=== PATIENT | female | born 1990 | race Two or more races ===

== ENCOUNTER 2023-01-01 23:37 | Inpatient (IN) ==
[2023-01-02] MEDS ORDERED: LIDOCAINE 1% LOCAL 20 ML VIAL INFIL PRN (01:19)
[2023-01-02] MEDS ORDERED: OXYTOCIN 30 UNITS/500 ML BAG IV PRN ×2 (01:19→07:41)
[2023-01-02] MEDS ORDERED: LACTATED RINGER'S 1,000 ML IV PRN (01:19)
[2023-01-02] MEDS ORDERED: VANCOMYCIN HCL 1,000 MG in SODIUM CHLORIDE 0.9% 250 ML IV STA (01:19)
[2023-01-02] MEDS ORDERED: GENTAMICIN SULFATE STA (01:24)
[2023-01-02] MEDS ORDERED: AZITHROMYCIN 250 MG TAB PO ONE (01:24)
[2023-01-02] MEDS ORDERED: SODIUM CHLORIDE 0.9% 250 ML IV PRN (01:27)
[2023-01-02] MEDS ORDERED: GENTAMICIN SULFATE 40 MG/ML 2 ML VIAL IM ONE (01:45)
--- NOTE | 2023-01-02 02:05 | History & Physical Report ---
Date of Service January 02, 2023 Assessment & Plan (1) Late care affecting : (2) History of von Willebrand's disease: (3) History of drug abuse: (4) and not yet delivered: Plan Labor - Admit to L&D. EFM/toco. Labs. Not eligible for spinal anesthesia d/t VonWillebrands. Given patient's active labor, patient is not eligible for consideration of transfer. VonWillebrands disease - Will plan for DDAVP prior to delivery, 0.3mcg/kg (max 20mcg) in 50mL NS over 20-30 min. Can repeat at 12 and 24h. I have discussed the case with on-call anesthesiologist and on-call ICU provider. I called blood bank to verify adequate blood supplies - there is frozen FFP and cryo available, as well as 2u platelets, and adequate O+ PRBC supplies. Coagulation labs ordered. VonWillebrand activity labs ordered, however cannot be done overnight because this is a send-out lab. I called and discussed case with on-call social worker assistant Dr Seaman. Her recommendations are to give DDAVP prior to delivery, ok to repeat. OK for TXA at time of delivery. If is necessary, have platelets available. Hepatitis C - will plan to avoid internal monitoring if possible, membranes already ruptured. Late care - health social work professor consult Hx Substance use - Patient's self-report is 1/8 to 1/4 tablet daily during the . Will plan to medicate with her current regimen during hospitalization to avoid withdrawal symptoms. She is aware of urine drug screen orders. Social work consultation for post-delivery evaluation. Gonorrhea positive - Ordered 2g azithromycin PO, 240mg IM gentamicin d/t PCN anaphylaxis allergy. GBS Unknown, PCN anaphylaxis allergy - Vancomycin for prophylaxis Admission and Anticipated Discharge Date Admission Date: January 02, 2023 History of Present Illness Chief Complaint: contractions, leaking fluid Primary Care Provider: WILLIAM Lugo 32yo @ 37 12/12 (based on 3rd tri dating [place]) presented to L&D with complaint of leaking clear fluid since 3am 01/01, contractions every 5 minutes. + movement, no vaginal bleeding. She did not come to hospital or call after rupture of membranes, arrived to hospital at approx 23:45 01/01. complicated by: VonWillebrands disease - she was diagnosed after delivery of her first child 13 years ago. Rec'd blood transfusion with that delivery, which prompted coagulopathy workup. Has rec'd DDAVP in the past for procedures (D&C). She was referred to hematology for consultation during this , did not go to this appointment. Hepatitis C - recommendation to avoid internal monitoring if possible, delay rupture of membranes. Patient arrived with rupture of membranes. Will recommend referral to hepatology for management after delivery. Late care - established care at 33w gestation. Hx Substance use - At New OB visit, UDS positive for methamphetamine and marijuana. She reports having a medical marijuana card. States she has been on Subutex prior to and during . She is using 1/8 to 1/4 tablet daily during the . She states she does not have a prescription for this yet because she is switching doctors, but says that the prescription will be available through [facility] program on January 11. Urine drug screen ordered on this admission - patient is aware and agreeable to this. Social work consultation for post-delivery evaluation. Gonorrhea positive - Patient was ordered treatment for this - azithromycin, gentamicin d/t PCN anaphylaxis allergy, was to have this completed at [facility] - patient did not attend this appointment and never received treatment. Allergies Allergy/AdvReac Type Severity Reaction Status Date / Time Penicillins Allergy Anaphylaxis Verified 12/16/22 14:03 Sulfa (Sulfonamide Allergy Anaphylaxis Verified 12/16/22 14:03 Antibiotics) Home Medications Medication Instructions Recorded Confirmed Type prenat.vits,anjelica,[id number] 1 tab PO DAILY 10/26/22 01/02/23 History ondansetron HCl 4 mg tablet 4 mg PO Q6H PRN nausea and 12/03/22 01/02/23 Rx vomiting #20 tabs buprenorphine HCl 2 mg sublingual 2 mg sublingual DAILY 01/02/23 01/02/23 History tablet Patient History Medical History (Updated 01/02/23 @ 00:03 by Radha Moore RN) Von Willebrand disease Surgical History S/P appendectomy S/P dilation and curettage Family History Grandmother Breast cancer Lung cancer Mother Breast cancer Asthma Sister Asthma Father Myocardial infarction Other Cancer Heart disease Social History Smoking Status: Current every day smoker Tobacco Type: Cigarettes packs per day: 0.5; Cigarettes Per Day: pack a day; Second Hand Exposure: Yes; Do You Dip or Chew Tobacco: No; Hx Alcohol Use: Yes (before , "very little") Hx Substance Use: Yes Last Used Substance: Days (ago) Last Used Substance Other:: marijuana- 01/01 Preferred Language: Romansh Communication Ability: Effective 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 Beliefs That Will Affect Care: None marital status: Single marital status details: Hunter (41) [phone] Current Living Situation: Significant Other Current Living Situation Comment: lives with fob and fob's son, 1 dog, 1 lizard, current occupational status: unemployed Feels Safe at Home: Yes Safety Concerns: Feels Safe At This Time Assistive Devices: Glasses Review of Systems All systems reviewed & are unremarkable except as noted in HPI & below Physical Exam Physical Exam: FHT Cat 1 [place] Q 2-4 min SVE 4/80/-2, grossly ruptured with +fluid at introitus, +nitrizine Constitutional: WD/WN, vitals as above Respiratory: normal respiratory effort, lungs clear to auscultation no respiratory distress Cardiovascular: Rate/Rhythm: regular rate and regular rhythm Gastrointestinal (Abdomen): Inspection/Auscultation: abdomen normal to inspection Percussion/Palpation: abdomen soft; abdomen nontender Gravid. No s/s chorio or abruption. Skin: no rashes, warm and dry Psychiatric: A+Ox3, euthymic affect Results & Data Vital Signs (Past 12 Hours) Vital Signs Pulse Resp BP O2 Del Method 01/02/23 00:10 75 20 114/78 Room Air 01/01/23 23:54 75 114/78 Coding Level of Care Code None Diagnoses Late care affecting O09.30 History of von Willebrand's disease Z86.2 History of drug abuse F19.11 and not yet delivered Z34.90
[2023-01-02 02:24] LABS: Amphetamines+Metham, Urine Pos (Neg); Barbiturates, Urine Neg (Neg); Benzodiazepine, Urine Neg (Neg); Cocaine, Urine Neg (Neg); MDMA (Ecstacy), Urine Pos (Neg); Methadone, Urine Neg (Neg); Opiate, Urine Neg (Neg); Phencyclidine, Urine Neg (Neg)
[2023-01-02 02:35] LABS: Albumin Globulin Ratio 1.1 (0.9-2); Albumin Level 3.1 gm/dl (3.4-5.0); Bilirubin,Total 0.3 mg/dl (0.2-1.0); Calcium 8.4 mg/dl (8.6-10.3); Est GFR (African American) 149.5 ml/min; Globulin 2.9 gm/dl (2.5-4.0); Potassium 3.3 mmol/L (3.5-5.1)
[2023-01-02 02:44] LABS: Hematocrit (blood only) 32.1 % (37.0-47.0); Hemoglobin 10.7 g/dl (12.0-16.0); Mean Corpuscular Hemoglobin 29.1 pg (25.0-34.0); Mean Corpuscular Hgb Conc 33.3 g/dL (32.0-36.0); Mean Corpuscular Volume 87.2 fL (80.0-100.0); Platelet Count 59 K/uL (130-400); Platelet Estimate Decreased (Normal); RDW Coefficient of Variation 13.9 % (11.5-14.5); RDW Standard Deviation 43.9 fL (36.4-46.3); Red Blood Count 3.68 M/uL (4.20-5.40); White Blood Count 10.35 K/ul (4.8-10.8)
[2023-01-02 03:04] LABS: Fibrinogen 398 mg/dl (184-400); INR 0.9 (0.9-1.1); Partial Thromboplastin Ratio 0.9; Partial Thromboplastin Time 25.5 Seconds (21.0-31.0); Prothrombin Time 9.6 Seconds (9.0-12.0)
--- NOTE | 2023-01-02 04:09 | Oncology Consultation ---
Date of Consultation January 02, 2023 Assessment & Plan (1) History of von Willebrand's disease: (2) Thrombocytopenia during : Plan Lady with h/o Von willebrand's disease (unclear subtype?Type 2 ) presenting in labor -Since she previously responded to DDAVP, would recommend DDAVP 0.3mcg/kg administered in 50ml Normal saline (maxmum dose total dose 20mcg) over 20 minutes. This can be repeated after 12 hours and 24 hours post -Can also give antifibrinolytic as an adjunct such as tranexamic acid. -If she has significant bleeding despite above measures, give Humate P 60 units/kg followed by 30 units /kg 12 hours after x 7 days post (confirmed to be available in the pharmacy) -She also has thrombocytopenia with normal coagulation panel and LFTs. Of note platelet count was normal 1 month ago. Based on this, there is no evidence to suggest DIC/HELLP. Although this is more likely gestational and less likely ITP recommend checking B12, folate, LDH,haptoglobin ,smear review (ordered) to rule out other causes such as TMA, Nutritional deficiencies. If she requires C section will require platelet transfusion in the setting of von willebrand's disease. -Daily labs including CBC, Coags. Will follow up on von willebrand's disease testing which was ordered earlier today. May need to be repeated this since levels could be falsely high in Thank you for this consult. Please feel free to call me at anytime if you have any further questions History of Present Illness Reason for Consultation: Von willebrand's disease Attending Physician: Liya Pereira, History of Present Illness 32 year old with reported history of von willebrand's disease (exact type known), substance abuse and hepatitis C who is currently about 37 weeks and presented in active labor. Since this is an urgent consult and I have not been able to evaluate patient, most of clinical history was obtained based on discussion with ObGyn and review of her chart. Per review of admission notes, she was diagnosed with von willebrand's disease after delivery of her first child 13 years ago.She apparently had significant bleeding post for which PRBC transfusion was required. She had thrombophilia workup and was diagnosed with ?Type2 Von willebrand's. Over the years, patient has had miscarriages requiring D&Cs for which she received DDAVP with no bleeding issues. Labs obtained today revealed hemoglobin of 10.7 and platelet count of 59,000 (11 and 134,000 respectively on 12/02/2022) Allergies Allergy/AdvReac Type Severity Reaction Status Date / Time Penicillins Allergy Anaphylaxis Verified 12/16/22 14:03 Sulfa (Sulfonamide Allergy Anaphylaxis Verified 12/16/22 14:03 Antibiotics) Home Medications Medication Instructions Recorded Confirmed Type prenat.vits,anjelica,[id number] 1 tab PO DAILY 10/26/22 01/02/23 History ondansetron HCl 4 mg tablet 4 mg PO Q6H PRN nausea and 12/03/22 01/02/23 Rx vomiting #20 tabs buprenorphine HCl 2 mg sublingual 2 mg sublingual DAILY 01/02/23 01/02/23 History tablet Patient History Medical History (Updated 01/02/23 @ 04:28 by Keke Seaman MD) Von Willebrand disease Surgical History S/P appendectomy S/P dilation and curettage Family History Grandmother Breast cancer Lung cancer Mother Breast cancer Asthma Sister Asthma Father Myocardial infarction Other Cancer Heart disease Social History Smoking Status: Current every day smoker Tobacco Type: Cigarettes packs per day: 0.5; Cigarettes Per Day: pack a day; Second Hand Exposure: Yes; Do You Dip or Chew Tobacco: No; Hx Alcohol Use: Yes (before , "very little") Hx Substance Use: Yes Last Used Substance: Days (ago) Last Used Substance Other:: marijuana- 01/01 Preferred Language: Azeri Communication Ability: Effective 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
[2023-01-02] MEDS ORDERED: TRANEXAMIC ACID / 0.7% NACL 1,000 MG/100 ML BAG IV PRN (04:11)
[2023-01-02] MEDS ORDERED: DESMOPRESSIN ACETATE 20 MCG in SODIUM CHLORIDE 0.9% 50 ML IV PRN (04:11)
--- NOTE | 2023-01-02 04:29 | Labor Progress Brief Note ---
Date of Service January 02, 2023 Subjective Feeling increased pressure. FHT Cat 1 [place] Q 2-4 SVE 4-5/100/0 Continue monitoring of labor. DDAVP coming from pharmacy momentarily and TXA is available for when needed. Assessment & Plan Admission and Anticipated Discharge Date Admission Date: January 02, 2023 Results & Data Vital Signs (Past 12 Hours) Vital Signs Temp Pulse Resp BP O2 Del Method 01/02/23 00:10 75 20 114/78 Room Air 01/02/23 03:56 60 137/74 01/02/23 02:36 18 01/02/23 02:36 36.6 C 18 01/01/23 23:54 75 114/78 Coding Level of Care Code None Diagnoses
[2023-01-02 04:54] LABS: Ferritin 14.2 ng/ml (8-388)
[2023-01-02] MEDS: OXYTOCIN 30 UNITS/500 ML BAG IV PRN ×2 (06:52→07:41)
[2023-01-02] MEDS ORDERED: miSOPROStoL 200 MCG TAB ONE (07:04)
[2023-01-02] MEDS ORDERED: METHYLERGONOVINE MALEATE 0.2 MG/ML AMP ONE (07:05)
[2023-01-02] MEDS ORDERED: METHYLERGONOVINE MALEATE 0.2 MG/ML AMP IM ONE (07:41)
[2023-01-02] MEDS ORDERED: bisacodyL 10 MG SUPP PR PRN (07:41)
[2023-01-02] MEDS ORDERED: ACETAMINOPHEN 325 MG TAB PO PRN (07:41)
[2023-01-02] MEDS ORDERED: BENZOCAINE 20% AER SPR 82.5 GM CAN EXT PRN (07:41)
[2023-01-02] MEDS ORDERED: HYDROCORTISONE ACETATE 25 MG SUPP PR PRN (07:41)
[2023-01-02] MEDS ORDERED: DIPHTHERIA/TETANUS/PERTUSSIS Vaccine (Tdap, Age 7+yrs) 0.5mL SYR/VL IM ONE (07:41)
[2023-01-02] MEDS ORDERED: miSOPROStoL 200 MCG TAB PR ONE (07:41)
[2023-01-02 07:47] LABS: CO2 Cord Arterial Blood 43 mmHg (39.1-73.5); HCO3 Cord Arterial Blood 20 mmol/L (19.7-28.5); Oxygen Sat Cord Arterial Blood < 60.0 % (<60); PO2 Cord Arterial Blood 22 mmHg (4.1-31.7); pH Cord Arterial Blood 7.27 (7.1-7.38)
[2023-01-02 07:48] LABS: Base Excess Cord Venous Blood -4.4 mEq/L (-7.7-1.9); Cord Venous Blood HCO3 20 mmol/L (18.4-26.8); Cord Venous Blood PCO2 35 mmHg (30.4-57.2); Cord Venous Blood PO2 28 mmHg (14.1-43.3); Cord Venous Blood pH 7.37 (7.20-7.44)
--- NOTE | 2023-01-02 08:06 | Communication Note ---
Date of Service: January 02, 2023 Patient had initially told us on arrival that she is taking subutex - after further discussion, she told me that she has actually been taking suboxone, and that she has PLANS to get subutex through [facility] [place] [facility]. She does not currently have a prescription for this, but tells me that during the , she has been taking between 1/8 and 1/4 tab of suboxone daily when she wakes up in the morning. We discussed prescribing during her hospital stay and discharge plans: my plan for her in the hospital is to keep her on the current medication and dose that she has been using, so I have ordered 1/4 tab with her agreement. She will not be able to receive an rx for this upon discharge, and will need to follow up with her outpatient prescriber for further treatment once she is discharged.
[2023-01-02] MEDS: IBUPROFEN 600 MG TAB PO PRN ×3 (08:08→23:35)
[2023-01-02] MEDS: DOCUSATE SODIUM 100 MG CAP PO SCH ×2 (08:08→21:46)
[2023-01-02] MEDS: PRENATAL VITAMIN 1 TAB PO SCH (08:08)
--- NOTE | 2023-01-02 08:18 | Delivery Summary ---
Vaginal Delivery Summary Date of Service January 02, 2023 Vaginal Delivery Summary and 1st Degree LAC Vaginal Delivery Summary: Pre-delivery diagnoses: 32yo 37 5/7, spontaneous labor, Von Willebrand's disease, untreated gonorrhea, GBS unknown, drug use, noncompliance with care Post-delivery diagnoses: same Procedure: spontaneous vaginal delivery, repair of superficial tears and 1st degree perineal laceration Surgeon: Liya Pereira DO Complications: none Findings: Viable female . Apgars: 7/9. Weight 6#10oz. Estimated blood loss: 300ml Description of delivery: The patient progressed to complete without anesthesia. She was given 20mcg DDAVP and 1g TXA approximately 45 minutes prior to delivery. She then began to push. She spontaneously vaginally delivered a viable from the cephalic presentation. The head delivered in PEACE position. The anterior shoulder delivered, followed by the posterior shoulder, followed by the body. The baby was placed on mother's abdomen and a spontaneous cry was heard. No nuchal cord noted. The cord was doubly clamped and cut. A segment was retained for cord gases. Cord blood was obtained. The placenta was delivered spontaneously intact with a 3-vessel cord. The uterus and vagina were swept of clots and debris. IV pitocin was given. The uterus became firm. The cervix, vagina, and perineum were inspected and bilateral superficial labial lacerations were noted, as well as superficial 1st degree perineal laceration. Lidocaine infused for anesthetic. These were superficial, but edges oozing, therefore they were all reapproximated with 3-0 vicryl interrupted sutures. Excellent hemosta sis was observed. 1 dose IM methergine was given, as well as 1000mcg cytotec [place], because of Von Willebrand's diagnosis - excellent hemostasis. Will check CBC now post-delivery, with a repeat at noon. Will keep patient under L&D care until after 12p CBC, keep NPO to monitor for bleeding. The mother and baby are recovering in stable and good condition in the room. Sponge, needle and instrument counts were correct x 2. Liya Pereira DO [facility] Vaginal Delivery Charge Vaginal Delivery Codes: 23389 global code for the antepartum, delivery, and post- Delivery Type Details: and 1st Degree LAC
[2023-01-02 08:40] LABS: Hematocrit (blood only) 33.7 % (37.0-47.0); Hemoglobin 11.4 g/dl (12.0-16.0); Mean Corpuscular Hemoglobin 29.4 pg (25.0-34.0); Mean Corpuscular Hgb Conc 33.8 g/dL (32.0-36.0); Mean Corpuscular Volume 86.9 fL (80.0-100.0); Platelet Count 53 K/uL (130-400); RDW Standard Deviation 44.4 fL (36.4-46.3); Red Blood Count 3.88 M/uL (4.20-5.40); White Blood Count 21.21 K/ul (4.8-10.8)
[2023-01-02] MEDS: BUPRENORPHINE/NALOXONE 2/0.5MG 1 TAB PO SCH (10:16)
[2023-01-02] MEDS ORDERED: VANCOMYCIN HCL 1,000 MG in SODIUM CHLORIDE 0.9% 250 ML IV PRN (12:19)
[2023-01-02 12:27] LABS: Hematocrit (blood only) 29.2 % (37.0-47.0); Hemoglobin 10.1 g/dl (12.0-16.0); Mean Corpuscular Hemoglobin 29.4 pg (25.0-34.0); Mean Corpuscular Hgb Conc 34.6 g/dL (32.0-36.0); Mean Corpuscular Volume 85.1 fL (80.0-100.0); Mean Platelet Volume 13.6 fL (9.4-12.4); Platelet Count 56 K/uL (130-400); RDW Coefficient of Variation 13.8 % (11.5-14.5); RDW Standard Deviation 42.8 fL (36.4-46.3); Red Blood Count 3.43 M/uL (4.20-5.40); White Blood Count 17.56 K/ul (4.8-10.8)
[2023-01-02] MEDS ORDERED: DESMOPRESSIN ACETATE 20 MCG in SODIUM CHLORIDE 0.9% 50 ML IV ONE (18:00)
[2023-01-02 18:15] LABS: Hematocrit (blood only) 30.1 % (37.0-47.0); Hemoglobin 10.3 g/dl (12.0-16.0); Mean Corpuscular Hemoglobin 29.3 pg (25.0-34.0); Mean Corpuscular Hgb Conc 34.2 g/dL (32.0-36.0); Mean Corpuscular Volume 85.5 fL (80.0-100.0); Mean Platelet Volume 12.4 fL (9.4-12.4); Platelet Count 55 K/uL (130-400); RDW Coefficient of Variation 13.8 % (11.5-14.5); RDW Standard Deviation 42.7 fL (36.4-46.3); Red Blood Count 3.52 M/uL (4.20-5.40); White Blood Count 15.49 K/ul (4.8-10.8)
[2023-01-03] MEDS: IBUPROFEN 600 MG TAB PO PRN (03:41)
[2023-01-03] MEDS: DOCUSATE SODIUM 100 MG CAP PO SCH (07:54)
[2023-01-03] MEDS: PRENATAL VITAMIN 1 TAB PO SCH (07:54)
[2023-01-03 08:19] LABS: Hematocrit (blood only) 28.2 % (37.0-47.0); Hemoglobin 9.8 g/dl (12.0-16.0); Mean Corpuscular Hemoglobin 29.9 pg (25.0-34.0); Mean Corpuscular Hgb Conc 34.8 g/dL (32.0-36.0); Mean Platelet Volume 12.2 fL (9.4-12.4); Platelet Count 67 K/uL (130-400); RDW Coefficient of Variation 13.9 % (11.5-14.5); RDW Standard Deviation 42.8 fL (36.4-46.3); Red Blood Count 3.28 M/uL (4.20-5.40); White Blood Count 12.51 K/ul (4.8-10.8)
--- NOTE | 2023-01-03 08:29 | Obstetrical Progress Note ---
Date of Service January 03, 2023 Assessment & Plan (1) Encounter for supervision of normal in multigravida, antepartum: PPD#1 doing well. No bleeding. Yesterday platelets and Hgb remained stable. Will plan to check CBC this morning and then remove IVs if labs remain stable. She would like to be discharged today, [facility], as baby will be here for monitoring. Discussed discharge instructions. She will need to followup with outpatient drug rehab program for further management of suboxone/subutex, as we are not able to give her a script for this - she is aware of this and feels that she will be ok until the 01/11/23 date of her appointment. She will need to come to the office for 6w visit. Also will need to come back for 3 mo retest for gonorrhea. Questions answered. Subjective Ambulation: ambulating normally Voiding: no voiding problems Diet Tolerance:: regular diet Lochia:: Moderate Review of Systems All systems reviewed & are unremarkable except as noted in HPI & below Physical Exam Constitutional WD/WN, vitals as above no acute distress Respiratory normal respiratory effort Cardiovascular Rate/Rhythm: regular rate and regular rhythm Gastrointestinal (Abdomen) Inspection/Auscultation: abdomen normal to inspection; abdomen not distended Percussion/Palpation: abdomen soft Genitourinary OB Exam Abdomen: + fundal height Fundus: + firm; not tender Results & Data Vital Signs (Past 12 Hours) Vital Signs Temp Pulse Resp BP Pulse Ox O2 Del Method 01/03/23 07:45 36.4 C L 58 L 16 138/74 100 Room Air 01/03/23 03:34 36.6 C 62 20 126/76 99 Room Air 01/02/23 23:21 36.5 C 68 18 132/75 99 Room Air
[2023-01-03] MEDS: BUPRENORPHINE/NALOXONE 2/0.5MG 1 TAB PO SCH (08:57)
[2023-01-03] MEDS ORDERED: bisacodyL 5 MG TABEC PO SCH (20:00)
== END 2023-01-03 18:35 | disposition home or self-care (01) | DRG 806 ==
LOC: OPB 23:37 → 4S1 23:40 → 4E2 01-02 15:49